=== PATIENT | female | born 1950 | race Caucasian/White ===

== ENCOUNTER → 2019-02-06 | Outpatient (CLI) | payer MEDICARE ==
[~2019-02-06] MED LIST: CHOL50004 PO; LACT1CAP78 PO; MAGN250T10 PO; META-25 PO; MG T1TAB3 PO; SIMV20TA6 PO; VITA400C70 PO
== END | disposition home or self-care (01) ==
LOC: RAH 13:22
PROVIDERS: ATTEND Urology
DX: N13.2 Hydronephrosis with renal and ureteral calculous obstruction (principal)
CPT/HCPCS: 76770

== ENCOUNTER → 2019-03-07 | Outpatient (CLI) | payer MEDICARE ==
[~2019-03-07] MED LIST changes: +IBUP200C5 PO; +SIMV-43 PO; -SIMV20TA6 PO; +VITA-164 PO; -VITA400C70 PO
== END | disposition home or self-care (01) ==
LOC: RAH 13:08
PROVIDERS: ATTEND Urology
DX: N13.2 Hydronephrosis with renal and ureteral calculous obstruction (principal); R31.29 Other microscopic hematuria
CPT/HCPCS: 74176

== ENCOUNTER 2019-04-07 09:20 | Day surgery (SDC) | payer MEDICARE ==
[2019-04-05 14:52] LABS: BASOPHILS % (AUTO) 1.4 % (0.0-5.0); EOSINOPHILS % (AUTO) 3.4 % (0.0-8.0); HEMATOCRIT 47.7 % (36-48); MEAN CORPUSCULAR HEMOGLOBIN 31.6 pg (27.0-33.0); MEAN CORPUSCULAR HGB CONC 33.5 g/dL (32.0-36.0); MEAN CORPUSCULAR VOLUME 94.4 fL (79-99); MONOCYTES % (AUTO) 8.9 % (3.0-13.0); NEUTROPHILS % (AUTO) 63.3 % (40.0-77.0); PLATELET COUNT (AUTO) 163 K/uL (130-400); RED BLOOD CELL COUNT(AUTO) 5.05 MIL/uL (4.00-5.50); RED CELL DISTRIBUTION WIDTH 13.4 % (11.0-15.5); WHITE BLOOD COUNT (AUTO) 6.9 K/uL (4.8-10.8)
[2019-04-05 14:58] LABS: CREATININE 0.9 mg/dL (0.5-1.5); POTASSIUM 3.9 mmol/L (3.5-5.1)
[2019-04-05 15:07] VITALS: BP 157/76
[2019-04-07] VITALS (12 sets, daily range): BP systolic 126–146; BP diastolic 58–84
[~2019-04-07] VITALS: Ht 170.2 cm; Wt 81.5 kg
[~2019-04-07 09:20] MED LIST changes: -LACT1CAP78 PO; -MAGN250T10 PO; -META-25 PO; -MG T1TAB3 PO
[2019-04-07] MEDS: CEFTRIAXONE SODIUM 1 GM IVP SCH ×2 (10:00→12:05)
[2019-04-07] MEDS ORDERED: LACTATED RINGERS 1000ML 1,000 ML IV ONE (10:07)
[2019-04-07] MEDS ORDERED: IOHEXOL-350 50ML VIAL IV ONE (10:55)
[2019-04-07] MEDS ORDERED: PROPOFOL 10 MG/ML 20ML VIAL IV ONE (11:52)
[2019-04-07] MEDS ORDERED: LIDOCAINE PF 2% 5ML ABBOJECT ONE (11:52)
[2019-04-07] MEDS ORDERED: FENTANYL CITRATE PF 50 MCG/1 ML 2ML VIAL ONE (11:52)
[2019-04-07] MEDS ORDERED: MIDAZOLAM HCL 1 MG/ML 2ML VIAL ONE (12:02)
[2019-04-07] MEDS ORDERED: PHENAZOPYRIDINE HCL 200 MG TABLET ONE (13:43)
== END 2019-04-07 14:31 | disposition home or self-care (01) ==
LOC: DAH 09:20
PROVIDERS: ATTEND Urology
DX: N13.30 Unspecified hydronephrosis (principal); R31.29 Other microscopic hematuria; I86.2 Pelvic varices; E78.5 Hyperlipidemia, unspecified; K21.9 Gastro-esophageal reflux disease without esophagitis; M79.7 Fibromyalgia; Z88.2 Allergy status to sulfonamides; Z88.1 Allergy status to other antibiotic agents; Z79.899 Other long term (current) drug therapy; Z80.42 Family history of malignant neoplasm of prostate
CPT/HCPCS: 36415; 52005; 74420; 80048; 85025; A4213; A4215; A4221; A4222; A4223; A4510; A4600; A4663; A4930; A6260; C1758; C1769; J0696; J2001; J2250; J2704; J3010; J7120; Q9967